=== PATIENT | male | born 1985 | race Hispanic/Latino ===

== ENCOUNTER 2018-02-23 13:07 | Emergency (ER) | payer OTHER ==
[2018-02-23 13:18] VITALS: O2SAT 100; BMI 22.5
[2018-02-23 14:30] LABS: BASO % 0.3 % (0.0-2.0); EOS # 0.1 K/uL (0.0-0.7); EOS % 1.4 % (0.0-4.0); HEMOGLOBIN 15.2 g/dL (12.0-18.0); LYMPH # 1.4 K/uL (1.0-4.3); LYMPH % 24.3 % (20.0-40.0); MEAN CELL VOLUME 88.1 fl (80.0-94.0); MEAN CORPUSCULAR HEMOGLOBIN 30.8 pg (27.0-31.0); MEAN CORPUSCULAR HGB CONC 34.9 g/dL (33.0-37.0); MONO # 0.5 K/uL (0.0-0.8); MONO % 8.6 % (0.0-10.0); NEUT # 3.9 K/uL (1.8-7.0); NEUT % 65.4 % (50.0-75.0); NRBC % 0.1 % (0.0-0.0); RBC 4.93 Mil/uL (4.40-5.90); RED CELL DISTRIBUTION WIDTH 13.2 % (11.5-14.5); WHITE BLOOD COUNT 5.9 K/uL (4.8-10.8)
[2018-02-23 14:41] LABS: BLOOD UREA NITROGEN 14 mg/dl (9-20); CALCIUM 9.1 mg/dL (8.4-10.2); GFR NON-AFRICAN AMERICAN > 60
--- NOTE | 2018-02-23 14:44 | ED PDOC ---
HPI: General Adult Time Seen by Provider: 02/23/18 13:36 Chief Complaint (Nursing): Headache Chief Complaint (Provider): headache, generalized weakness, near syncope History Per: Patient History/Exam Limitations: no limitations Onset/Duration Of Symptoms: Days (x1) Current Symptoms Are (Timing): Still Present Additional Complaint(s): Raamn Flood is a 33 year old male, with a past medical history of cardiac problems and ICD, who presents to the emergency department for evaluation of headache, generalized weakness, and feeling flushed onset for x1 day. Patient r eports when he lays flat he starts to feel flush, warm to touch, chills, short of breath and feels like he is about to pass out. Patient further states he has been having night sweats. He denies having similar symptoms in the past. He had an episode of abdominal pain with loose stools yesterday but has since resolved. He also reports x3 weeks ago he had the flu but symptoms resolved x1 week ago. Clark garibay was seen by his snailer x1 month ago and was told he had A-fib. He denies any chest pain, LOC, nausea, vomit, dizziness or other medical complaints. PMD: Leonidas Diamond Past Medical History Reviewed: Historical Data, Nursing Documentation, Vital Signs Vital Signs: Last Vital Signs Temp 97 F L 02/23/18 13:17 Pulse 102 H 02/23/18 13:17 Resp BP 137/88 02/23/18 13:17 Pulse Ox 100 02/23/18 13:17 - Medical History PMH: Cardia Arrhythmia Other PMH: cardiac arrest in 2015 - Surgical History Other surgeries: ICD - Family History Family History: States: Unknown Family Hx - Social History Current smoker - smoking cessation education provided: No Alcohol: Occasional Drugs: Denies - Allergies Allergies/Adverse Reactions: Allergies Allergy/AdvReac Type Severity Reaction Status Date / Time No Known Allergies Allergy Verified 02/23/18 13:24 Review of Systems ROS Statement: Except As Marked, All Systems Reviewed And Found Negative Constitutional: Positive for: Chills, Sweats, Weakness (generalized ) Cardiovascular: Negative for: Chest Pain Respiratory: Positive for: Shortness of Breath Gastrointestinal: Positive for: Abdominal Pain, Diarrhea. Negative for: Nausea, Vomiting Neurological: Positive for: Headache. Negative for: Dizziness Physical Exam - Reviewed Nursing Documentation Reviewed: Yes Vital Signs Reviewed: Yes - Physical Exam Appears: Positive for: No Acute Distress Head Exam: Positive for: ATRAUMATIC, NORMAL INSPECTION, NORMOCEPHALIC Skin: Positive for: Normal Color, Warm, Dry Eye Exam: Positive for: Normal appearance, EOMI, PERRL ENT: Positive for: Normal ENT Inspection Neck: Positive for: Painless ROM Cardiovascular/Chest: Positive for: Regular Rate, Rhythm. Negative for: Murmur Respiratory: Positive for: Normal Breath Sounds. Negative for: Respiratory Distress Gastrointestinal/Abdominal: Positive for: Normal Exam, Soft. Negative for: Tenderness, Guarding, Rebound Back: Positive for: Normal Inspection. Negative for: L CVA Tenderness, R CVA Tenderness, Vertebral Tenderness Extremity: Positive for: Normal ROM (upper and lower extremities), Other (Normal distal pulses). Negative for: Deformity, Swelling Neurologic/Psych: Positive for: Alert, Oriented. Negative for: Motor/Sensory Deficits - Laboratory Results Result Diagrams: 02/23/18 14:19 02/23/18 14:19 - ECG O2 Sat by Pulse Oximetry: 100 (RA) Pulse Ox Interpretation: Normal Medical Decision Making Medical Decision Making: Time: 13:36 Initial Impression: Generalized weakness, chills, near-syncope. Differential diagnosis includes: cardiac arrhythmia and CHF Initial Plan: --Head w/o contrast [CT] --EKG --BNP --BMP --Troponin I --CBC w/ differential --Chest portable [RAD] --Reevaluation 14:26 CXR normal with no acute findings except for ICD present. 14:59 FINDINGS: HEMORRHAGE: No intracranial hemorrhage. BRAIN: No mass effect or edema. No atrophy or chronic microvascular ischemic changes. VENTRICLES: Unremarkable. No hydrocephalus. CALVARIUM: Note is made of a small microplate and screws presumably reducing a fracture of the anterior wall of the left frontal sinus and left superior orbital rim calvarium otherwise intact. PARANASAL SINUSES: Unremarkable as visualized. No significant inflammatory changes. MASTOID AIR CELLS: Unremarkable as visualized. No inflammatory changes. OTHER FINDINGS: None. IMPRESSION: No acute intracranial hemorrhage. Scribe Attestation: Documented by Koko Singleton, acting as a scribe for Rashel Perez MD. Provider Scribe Attestation: All medical record entries made by the Scribe were at my direction and personally dictated by me. I have reviewed the chart and agree that the record accurately reflects my personal performance of the history, physical exam, [facility] decision making, and the department course for this patient. I have also personally directed, reviewed, and agree with the discharge instructions and disposition. Disposition - Clinical Impression Clinical Impression: Near syncope - Patient ED Disposition Is Patient to be Admitted: No Doctor Will See Patient In The: Office Counseled Patient/Family Regarding: Studies Performed, Diagnosis, Need For Followup - Disposition Disposition: Routine/Home Disposition Time: 15:00 Condition: GOOD Additional Instructions: RAMAN FLOOD, thank you for letting us take care of you today. Your provider was Rashel Perez MD and you were treated for NUMBNESS. The emergency medical care you received today was directed at your acute symptoms. If you were prescribed any medication, please fill it and take as directed. It may take several days for your symptoms to resolve. Return to the Emergency Department if your symptoms worsen, do not improve, or if you have any other problems. Please contact your doctor or call one of the physicians/clinics you have been referred to that are listed on the Patient Visit Information form that is included in your discharge packet. Bring any paperwork you were given at d ischarge with you along with any medications you are taking to your follow up visit. Our treatment cannot replace ongoing medical care by a primary care provider outside of the emergency department. [facility] you [facility] to be part of your care today. If you had an X-Ray or CT scan: A Radiologist will review the ED reading if any change in treatment is needed we will contact you. If you had a blood, urine, or wound culture: It will take several days for the results, if any change in treatment is needed we will contact you. If you had an STI test: It will take 48 hours for the results. Please call after 1 week if you have not heard back. Instructions: Syncope (Fainting)
[2018-02-23 14:53] LABS: B-TYPE NATRIURETIC PEPTIDE 42.4 pg/ml (0-450)
--- NOTE | 2018-02-23 15:00 | RAD ---
Date of service: 02/23/2018 HISTORY: dyspnea COMPARISON: No prior study available for comparison FINDINGS: LUNGS: No active pulmonary disease. PLEURA: No significant pleural effusion identified, no pneumothorax apparent. CARDIOVASCULAR: No atherosclerotic calcification present Note that the right cardiac border is poorly seen. Rule out pectus excavatum. In situ bipolar pacemaker defibrillator. OSSEOUS STRUCTURES: No significant abnormalities. VISUALIZED UPPER ABDOMEN: Normal. OTHER FINDINGS: None. IMPRESSION: No active disease.
--- NOTE | 2018-02-23 15:03 | CT ---
Date of service: 02/23/2018 PROCEDURE: CT HEAD WITHOUT CONTRAST. HISTORY: headache COMPARISON: None available. TECHNIQUE: Axial computed tomography images were obtained through the head/brain without intravenous contrast. Radiation dose: Total exam DLP = 835.28 mGy-cm. This CT exam was performed using one or more of the following dose reduction techniques: Automated exposure control, adjustment of the mA and/or kV according to patient size, and/or use of iterative reconstruction technique. FINDINGS: HEMORRHAGE: No intracranial hemorrhage. BRAIN: No mass effect or edema. No atrophy or chronic microvascular ischemic changes. VENTRICLES: Unremarkable. No hydrocephalus. CALVARIUM: Note is made of a small microplate and screws presumably reducing a fracture of the anterior wall of the left frontal sinus and left superior orbital rim calvarium otherwise intact. PARANASAL SINUSES: Unremarkable as visualized. No significant inflammatory changes. MASTOID AIR CELLS: Unremarkable as visualized. No inflammatory changes. OTHER FINDINGS: None. IMPRESSION: No acute intracranial hemorrhage.
[2018-02-23 15:20] VITALS: BP 130/76; PULSE 86; RESP 16; TEMP 98.1
--- NOTE | 2018-02-24 02:56 | CARD ---
APPROVED REPORT Date of service: 02/23/2018 EKG Measurement Heart [id number] <Conclusion> Normal sinus rhythm Normal ECG
== END 2018-02-23 15:15 | disposition home or self-care (01) ==
LOC: H.ER 13:07
DX: R55 Syncope and collapse (principal); Z86.74 Personal history of sudden cardiac arrest; Z95.810 Presence of automatic (implantable) cardiac defibrillator